=== PATIENT | male | born 1925 | race Two or more races ===

== ENCOUNTER 2016-11-18 13:51 | Emergency (ER) | payer MEDICARE, OTHER ==
[~2016-11-18] VITALS: Ht 177.8 cm; Wt 57.6 kg
[~2016-11-18 13:51] MED LIST: ATOR10TA PO; CLOP75TA28 PO; DRON400T PO; NEBI5TAB2 PO; TAM04C PO
[2016-11-18 15:29] VITALS: BP 118/51
[2016-11-18] MEDS ORDERED: traMADol HCL 50 MG TAB PO ONE (15:45)
== END 2016-11-18 15:55 | disposition home or self-care (01) ==
LOC: ER 13:51
DX: S93.602A Unspecified sprain of left foot, initial encounter (principal); E78.5 Hyperlipidemia, unspecified; I10 Essential (primary) hypertension; I25.2 Old myocardial infarction; Z95.0 Presence of cardiac pacemaker; Z88.1 Allergy status to other antibiotic agents; Z88.6 Allergy status to analgesic agent; W01.0XXA Fall on same level from slipping, tripping and stumbling without subsequent striking against object, initial encounter; Y93.89 Activity, other specified; Y99.8 Other external cause status; Y92.89 Other specified places as the place of occurrence of the external cause
CPT/HCPCS: 73630